=== PATIENT | male | born 1970 ===

== ENCOUNTER 2020-08-05 19:51 | Outpatient (REF) | payer OTHER, SELFPAY ==
[2020-08-07 16:36] LABS: COVID-19 RT-PCR UVMMC Result Negative (Negative)
== END 2020-08-05 20:11 ==
LOC: NCHCN 19:51
PROVIDERS: Visit Provider Internal Medicine
DX: Z20.828 Contact with and (suspected) exposure to other viral communicable diseases (principal)
CPT/HCPCS: U0003